=== PATIENT | male | born 1990 | race Caucasian/White ===

== ENCOUNTER 2025-03-18 14:47 | Day surgery (SDC) | payer OTHER ==
[~2025-03-18 14:47] MED LIST: DEXAMETHASONE SOD PHOSPHATE 4 MG/ML 1 ML VIAL IV ONE; HYDROmorphone 0.5 MG/0.5 ML SYRINGE IVP PRN; LACTATED RINGERS 1,000 ML IV SCH; LIDOCAINE 1% (10MG/ML) FOR IV START INTRADERMA PRN; MIDAZOLAM 2 MG/2 ML VIAL IV PRN; ONDANSETRON 4 MG/2 ML VIAL IVP ONE; Pre Op ABX Message 1 EACH MISC MISCELLANE ONE; fentaNYL (PF) 50 MCG/ML 2 ML AMP IVP PRN
[2025-03-18] MEDS: IV FLUID CONTINUATION 1,000 ML IV ONE (15:00)
[2025-03-18 15:29] VITALS: TEMP 97.8
[2025-03-18] MEDS: LIDOCAINE 1%-EPI 1:100,000 20 ML VIAL SQ ONE ×2 (16:20)
[2025-03-18 16:33] VITALS: RESP 16
[2025-03-18 16:57] VITALS: BP 125/73; PULSE 72
--- NOTE | 2025-03-18 21:17 | P.OP ---
Date of Procedure: 03/18/25 Preoperative Diagnosis: Infected Sebaceous Cyst Postoperative Diagnosis: Infected Sebaceous Cyst Procedure(s) Performed: Excision of Cyst Anesthesia: JOSE D local Surgeon: Jose Sanches Estimated Blood Loss (ml): 5 Pathology: other (Cyst) Condition: stable Disposition: PACU Description of Procedure: The patient was brought to the operating suite and placed in left lateral posiition. The patient was prepped and draped in usual sterile fashion. Local was used to infliltrate around the cyst. A #5 blade was used to make an incision around the sebaceous cyst. There was no active bleedng noted. Incision was closed with #4-o. Skin glue was applied.
== END 2025-03-18 17:10 | disposition home or self-care (01) ==
LOC: OR 14:47
PROVIDERS: ATTEND Surgery
DX: L72.0 Epidermal cyst (principal); L92.8 Other granulomatous disorders of the skin and subcutaneous tissue
CPT/HCPCS: 88304